=== PATIENT | female | born 1995 | race Caucasian/White ===

== ENCOUNTER 2016-07-16 23:10 | Emergency (ER) | payer OTHER ==
[~2016-07-16 23:10] MED LIST: ALBUTEROL17 G1 IH; BACTRIM DS TABL1 TA1 PO; DEPO-PROVER150 MG/ML INJ; HYDROCORTISONE30 G2 TOP; KEFLEX500 M1 PO; NO MEDICATIONS; PHENERGAN PO; PHENERGAN25 M1 PO; PREDNISONE PO; PYRIDIUM PO
== END 2016-07-16 23:59 | disposition home or self-care (01) ==
LOC: CED 23:10
DX: Z53.21 Procedure and treatment not carried out due to patient leaving prior to being seen by health care provider (principal)